=== PATIENT | female | born 1955 | race Caucasian/White ===

== ENCOUNTER 2018-07-21 14:13 | Emergency (ER) | payer OTHER ==
[~2018-07-21] VITALS: Ht 175.3 cm; Wt 77.0 kg
[2018-07-21 15:32] VITALS: BP 161/114
== END 2018-07-21 15:38 | disposition home or self-care (01) ==
LOC: ED 15:30
DX: M47.892 Other spondylosis, cervical region (principal); M54.2 Cervicalgia; G89.29 Other chronic pain
CPT/HCPCS: 72125; 99284

== ENCOUNTER 2020-03-11 00:36 | Emergency (ER) | payer OTHER ==
[~2020-03-11] VITALS: Ht 167.6 cm; Wt 80.0 kg
--- NOTE | 2020-03-11 00:50 | NUR ---
PT BIB [facility] FOR LAC TO LEFT HAND AFTER A GLF DUE TO ETOH INTOXICATION. BLEEDING CONTROLLED BY GAUZE. TETANUS UP TO DATE PER PT. PT HAS BEEN DRINKING VODKA AN JUICE TONIGHT. VSS. HUMMEL AT BEDSIDE
[2020-03-11] MEDS ORDERED: DIPH,PERTUSS(ACELL),TET VAC/PF 0.5 ML IM-VACC ONE ×3 (01:00→02:20)
[2020-03-11] MEDS ORDERED: LIDOCAINE-MPF 1%, 5ML INFIL ONE (01:00)
[2020-03-11] MEDS ORDERED: LIDOCAINE-MPF 1%, 5ML ONE (01:09)
[2020-03-11 01:17] LABS: BASOPHILS # (AUTO) 0.03 x10^3/uL (0-0.1); BASOPHILS % (AUTO) 1 % (0-1); EOSINOPHILS % (AUTO) 1 % (1-7); LYMPHOCYTES # (AUTO) 1.95 x10^3/uL (1-3.4); LYMPHOCYTES % (AUTO) 28 % (22-44); MD NO; MEAN CORPUSCULAR HEMOGLOBIN 32.2 pg (27.0-34.8); MEAN CORPUSCULAR HGB CONC 31.9 g/dL (32.4-35.8); MEAN CORPUSCULAR VOLUME 101.1 fL (80-100); MONOCYTES # (AUTO) 0.46 x10^3/uL (0.2-0.8); MONOCYTES % (AUTO) 7 % (2-9); NEUTROPHILS # (AUTO) 4.32 x10^3/uL (1.8-6.8); NEUTROPHILS % (AUTO) 63 % (42-75); PLATELET COUNT 198 x10^3/uL (130-400)
[2020-03-11 01:29] LABS: ALANINE AMINOTRANSFERASE 28 U/L (12-78); ALBUMIN 3.8 g/dL (3.4-5.0); ANION GAP 8 mmol/L (5-15); CALCIUM 8.7 mg/dL (8.5-10.1); CHLORIDE 107 mmol/L (98-107); CREATININE 0.93 mg/dL (0.55-1.02)
[2020-03-11 01:33] LABS: ALKALINE PHOSPHATASE 97 U/L (45-117); BILIRUBIN,TOTAL 0.4 mg/dL (0.2-1.0)
--- NOTE | 2020-03-11 01:53 | NUR ---
PT ASSISTED TO BATHROOM. PT NOT FOLLOWING DIRECTIONS WELL AND CONTINUES TO TRY TO REMOVE GOWN. PT RE DIRECTED AND WALKED TO BATHROOM WITH ASSISTANCE. PT WALKED BACK TO ROOM AND PLACED ON MONITOR. RAILS IN PLACE AND CALL LIGHT IN REACH
--- NOTE | 2020-03-11 02:49 | NUR ---
PT REQUESTED SPOUSE WAS CALLED. MESSAGE LEFT. SPOUSE CALLED BACK AND HE WILL COME PICK HER UP WHEN SHE IS READY FOR DISCHARGE
[2020-03-11 02:53] VITALS: BP 151/82
--- NOTE | 2020-03-11 03:15 | NUR ---
SPOUSE AT BEDSIDE
--- NOTE | 2020-03-11 03:29 | NUR ---
MD AT BEDSIDE FOR SUTURES WITH TECH TO ASSIST
--- NOTE | 2020-03-11 04:39 | NUR ---
Patient given discharge instructions and they have confirmed that they understand the instructions. Patient ambulatory with steady gait.
== END 2020-03-11 04:41 | disposition home or self-care (01) ==
LOC: ED 04:36
DX: S06.0X0A Concussion without loss of consciousness, initial encounter (principal); S61.212A Laceration without foreign body of right middle finger without damage to nail, initial encounter; F10.129 Alcohol abuse with intoxication, unspecified; M54.2 Cervicalgia; R00.0 Tachycardia, unspecified; R94.31 Abnormal electrocardiogram [ECG] [EKG]; W01.0XXA Fall on same level from slipping, tripping and stumbling without subsequent striking against object, initial encounter; Y93.89 Activity, other specified; Y92.098 Other place in other non-institutional residence as the place of occurrence of the external cause; Y99.8 Other external cause status; Y90.9 Presence of alcohol in blood, level not specified
CPT/HCPCS: 12041; 36415; 70450; 72125; 80053; 80307; 85025; 90471; 90715; 93005; 99285